=== PATIENT | female | born 1975 | race Hispanic/Latino ===

== ENCOUNTER 2017-01-07 08:38 | Day surgery (SDC) | payer BC ==
[~2017-01-07 08:38] MED LIST: FLAGYL 500 MG/100 ML 500 MG/100 ML BAG IV SCH
[2017-01-07] MEDS ORDERED: REGLAN ONE (10:26)
[2017-01-07] MEDS ORDERED: XYLOCAINE MPF 2% ONE (10:26)
[2017-01-07] MEDS ORDERED: SUBLIMAZE ONE (10:26)
[2017-01-07] MEDS ORDERED: ZOFRAN ONE (10:26)
[2017-01-07] MEDS ORDERED: DIPRIVAN 10 MG/ML IV ONE (10:26)
[2017-01-07] MEDS ORDERED: NEO SYNEPHRINE/NS Syringe(OR USE) IV ONE (11:00)
--- NOTE | 2017-01-07 11:02 | Anesthesia Consultation ---
Anesthesia Consult and Med Hx Date of service: 01/07/17 - Airway Anesthetic Teeth Evaluation: Good ROM Head & Neck: Adequate Mental/Hyoid Distance: Adequate Mallampati Class: Class I Intubation Access Assessment: Good - Pulmonary Exam CTA: Yes - Cardiac Exam Cardiac Exam: RRR - Pre-Operative Health Status ASA Pre-Surgery Classification: ASA2 Proposed Anesthetic Plan: General - Pulmonary Hx Smoking: No Hx Sleep Apnea: No (DAVID PRE SCREEN NEGATIVE) - Cardiovascular System Hx Hypertension: No - Central Nervous System Hx Neuromuscular Disorder: No Hx Psychiatric Problems: Yes (anxiety) - Gastrointestinal Hx Gastroesophageal Reflux Disease: Yes (mild, no meds) - Endocrine Hx Renal Disease: Yes (interstitial cystitis) - Other Systems Hx Cancer: No
--- NOTE | 2017-01-07 11:03 | Anesthesia Day of Surgery ---
Anesthesia Day of Surgery - Day of Surgery Patient Examined: Yes Patient H&P Reviewed: Yes Patient is NPO: Yes
[2017-01-07] MEDS ORDERED: VERSED IV NR (11:30)
[2017-01-07] MEDS ORDERED: PEPCID PO NR (11:30)
[2017-01-07] MEDS ORDERED: NACL 0.9% 1000 ML 1,000 ML IV SCH (11:30)
[2017-01-07] MEDS ORDERED: WATER FOR IRRIG STERILE IR ONE (12:30)
[2017-01-07] MEDS ORDERED: LACTATED RINGERS 1,000 ML ONE (13:01)
[2017-01-07] MEDS ORDERED: DECADRON ONE (13:04)
--- NOTE | 2017-01-07 13:25 | Short Stay Summary ---
Short Stay Documentation Date of service: 01/07/17 - History H&P: obtained from office - Allergies and Medications Current Medications: Allergies amoxicillin Allergy (Verified 12/29/16 16:17) Hives cefaclor [From Ceclor] Allergy (Verified 12/29/16 16:19) Hives AND SWELLING ciprofloxacin Allergy (Verified 12/29/16 16:19) Hives codeine Allergy (Verified 12/29/16 16:19) Vomiting erythromycin base Allergy (Verified 12/29/16 16:19) Hives levofloxacin [From Levaquin] Allergy (Verified 12/29/16 16:19) Hives Penicillins Allergy (Verified 12/29/16 16:19) Hives Sulfa (Sulfonamide Antibiotics) Allergy (Verified 12/29/16 16:19) Vomiting Home Medications Medication Instructions Recorded Confirmed Last Taken Type No Known Home Medications [No 12/29/16 12/29/16 Unknown History Reported Home Medications] Active Medications Famotidine (Pepcid) 20 mg PO PREOP NR Stop: 01/07/17 17:00 Last Admin: 01/07/17 11:15 Dose: 20 mg Metronidazole (Flagyl 500 Mg/100 Ml) 500 mg in 100 mls @ 100 mls/hr IV PREOP BILL Stop: 01/07/17 23:59 Sodium Chloride (Nacl 0.9% 1000 Ml) 1,000 mls @ 75 mls/hr IV DIRECT BILL Last Admin: 01/07/17 11:10 Dose: 75 mls/hr Midazolam HCl (Versed) 2 mg IV PREOP NR Stop: 01/07/17 17:00 Last Admin: 01/07/17 11:20 Dose: 2 mg - Brief post op/procedure progress note Date of procedure: 01/07/17 Pre-op diagnosis: rt flank pain, rt renal stone, hx of IC Post-op diagnosis: same Procedure: cysto, hydrodistention, rt eswl 4mm stone Anesthesia: GETA Surgeon: JEB CORTÉS Estimated blood loss: minimal Condition: stable - Hospital course Hospital course: liborio vivas, post op info on chart - Disposition Condition at discharge: Stable Disposition: [id number] TO HOME OR SELFCARE
--- NOTE | 2017-01-07 13:48 | Operative Report ---
PREOPERATIVE DIAGNOSES: Right flank pain, history of interstitial cystitis. POSTOPERATIVE DIAGNOSES: Right flank pain, history of interstitial cystitis. PROCEDURE PERFORMED: Cystoscopy, right retrograde pyelograms, hydrodistention (1200 mL), right extracorporal shock wave lithotripsy. SURGEON: Ozzy Blake MD ANESTHESIA: General. ESTIMATED BLOOD LOSS: Minimal. FLUIDS: Crystalloid. COMPLICATIONS: No complications. INDICATIONS: This patient is a 41-year-old female presents to the office with right flank pain and abdominal pain. She has a history of interstitial cystitis and has seen by Dr. Rhodes in the past. She has also had a history of hyperparathyroidism and Surgery as well. She last saw Dr. Rhodes in 2016. She states Elmiron and DMSO stopped working. She presents now for endoscopic evaluation. We restarted her Elmiron. CT of abdomen and pelvis revealed a right 4 mm stone. DESCRIPTION OF PROCEDURE: The patient was taken to the operative suite, placed in a supine position. After adequate general anesthesia, placed in a dorsal lithotomy position, prepped and draped in a sterile fashion. Pancystourethroscopy was performed with 22 Hebrew Storz cystoscope. No bladder pathology. Hydrodistention was performed. Maximum bladder capacity of 1200 mL. No petechiae hemorrhage could be appreciated. A stone was noted in the right renal pelvis. Retrograde confirmed no hydroureter. Her bladder was drained. She was placed in a supine position. Her stone was localized in 2 planes using fluoroscopy. Extracorporal shock wave lithotripsy was administered with a maximum kV of 5 and 2500 shocks. Adequate fragmentation could be appreciated. The patient tolerated the procedure well. She was extubated and taken to recovery room in stable condition. She will go home on Cipro and Dilaudid. JOB# [id number] [facility]
--- NOTE | 2017-01-07 14:38 | Post Anesthesia Evaluation ---
- Post Anesthesia Evaluation Patient Participated: Yes Airway Patent: Yes Stable Respiratory Function: Yes Nausea/Vomiting: No Temp > 96.8F: Yes Pain Manageable: Yes Adequeate Hydration: Yes Anesthesia Complications: No
[2017-01-07 20:43] VITALS: BP 116/71
== END 2017-01-07 15:42 | disposition home or self-care (01) ==
LOC: OR 08:38
PROVIDERS: ATTEND Urology
DX: N30.10 Interstitial cystitis (chronic) without hematuria (principal); I10 Essential (primary) hypertension; F41.9 Anxiety disorder, unspecified; K21.9 Gastro-esophageal reflux disease without esophagitis; E11.9 Type 2 diabetes mellitus without complications; Z88.1 Allergy status to other antibiotic agents; Z88.5 Allergy status to narcotic agent; Z88.0 Allergy status to penicillin; Z88.2 Allergy status to sulfonamides; Z88.8 Allergy status to other drugs, medicaments and biological substances; Z98.890 Other specified postprocedural states; Z79.899 Other long term (current) drug therapy
CPT/HCPCS: 50590; 52260; 81025; A4217; C1758; J1100; J2250; J2370; J2405; J2704; J2765; J3010; J7030; J7120; Q9967